=== PATIENT | male | born 1975 | race Caucasian/White ===

== ENCOUNTER 2017-09-20 23:04 | Inpatient (IN) ==
--- NOTE | 2017-09-20 23:20 | Emergency Department Note ---
Disposition Clinical Impression: Auditory hallucinations Disposition: Admitted As Inpatient Condition: Good Referrals: NONE,PCP [Primary Care Provider] - Forms: ED Satisfaction Letter Time of Disposition: 03:10 Psych HPI - General Chief Complaint: ED Psychiatric Symptoms Stated Complaint: SI Time Seen by Provider: 09/20/17 23:16 Source: patient Nursing Notes Reviewed: Yes Vital Signs Reviewed: Yes - History of Present Illness HPI Narrative: 42-year-old male with stated history of bipolar disease presents tonight with complaints of hallucinations, and decreased sleep 3 days. He describes auditory hallucinations as "moaning", visual hallucinations has people or "eyes " watching him and eye at night. He does not describe how long this has been going on but does mention he feels that this might be because he has not been taking his risperidone. He states this was changed from another medication and also mentions he was previously taking Paxil. He states that his brother recently told him he didn't need the medications. He sees Dr. Kayli Castillo, with whom he had seen 2 weeks ago, but missed the appointment today. He does not report any significant life stressors, injuries or recent illness. He does mention a history of heroin and alcohol abuse. He states he did have a beer earlier in the day, does report recent use of her water, Adderall which he buys on the street, and had used heroin 1-1/2 weeks ago. He mentions he has been admitted to [facility] in the past, and has had episodes of SI but denies any SI or HI tonight. - Related Data Home Medications Medication Instructions Recorded Confirmed Buprenorphine HCl/Naloxone HCl 1 film SL DAILY 11/04/15 11/04/15 [Suboxone 8 mg-2 mg Sl Film] Allergies Allergy/AdvReac Type Severity Reaction Status Date / Time No Known Allergies Allergy Verified 10/31/15 16:02 All systems ED: reviewed and negative except as stated. Review of Systems: As Per HPI Constitutional: Denies: fever Eyes: Denies: vision change ENT ED: Denies: throat pain Cardiovascular: Denies: chest pain Respiratory: Denies: dyspnea Gastrointestinal: Denies: abdominal pain, nausea, vomiting Genitourinary: Denies: dysuria Musculoskeletal: Reports: back pain. Denies: neck pain Integumentary: Denies: rash, lesions Neurological: Denies: headache Psychiatric: Reports: as per HPI Endocrine: Denies: fatigue Hematological/Lymphatic: Denies: easy bleeding Allergic/Immunologic: Denies: facial swelling Past Medical History - Past Medical History Medical history: Reports: other Surgical history: Reports: other Psychiatric history: Reports: bipolar - Social History Smoking Status: Current every day smoker Smokeless Tobacco Status: No Alcohol use: Reports: heavy Drug use: Reports: IV Drug Use, prescription drug abuse Physical Exam - General Limitations: no limitations General appearance: alert, in no apparent distress - Head Head exam: atraumatic, normocephalic - Eye Eye exam: Present: EOMI. Absent: conjunctival injection - ENT ENT exam: normal exam, normal oropharynx, mucous membranes moist - Neck Neck exam: Present: normal inspection, full ROM. Absent: meningismus, lymphadenopathy - Chest Chest inspection: Present: normal inspection, symmetric chest wall rise - Respiratory Respiratory exam: Present: normal lung sounds bilaterally. Absent: respiratory distress - Cardiovascular Cardiovascular exam: Present: regular rate, normal rhythm - Abdominal Exam Abdominal exam: Present: soft, Non-Tender - Extremities Exam Extremities exam: Present: normal inspection, full ROM, normal capillary refill - Back Exam Back exam: Present: normal inspection, full ROM. Absent: tenderness, CVA tenderness (R), CVA tenderness (L) - Neurological Exam Neurological exam: Present: alert - Psychiatric Psychiatric exam: Present: normal mood, manic - Skin Skin exam: Present: warm, dry, intact, normal color. Absent: rash, cyanosis, diaphoresis Course Course Narrative: 42-year-old male smoker with known history of bipolar disease presents with complaint of decreased sleep, and auditory or visual hallucinations. He reportedly is noncompliant with his risperidone. He also has reported history of IV drug use, and prescription medication abuse. He mentions other than risperidone he has not been prescribed any other medications. He mentions he had drank alcohol today, and recent use of Adderall marijuana and heroin. He mentions he has some low left lumbar pain that he relates to mowing grass, that he denies any other injuries, recent illness. On examination, patient is alert, talkative, does appear that he may be manic. He is clinically sober. He does describe auditory or visual hallucinations. Does report a prior history of suicidal ideation. He does describe being noncompliant with his medications and drug use, denies any life stressors. He mentions his girlfriend "arrhythmia" dropped him off and appears to be supportive. He reports that he sees Dr. Kayli Castillo, but missed the appointment earlier today. I will attempt to medically clear him for behavioral health evaluation, and if so, I we will order a behavioral health consult 1 day. Workup initiated. - Reevaluation(s) Reevaluation #1: Patient's blood alchol level 110. I anticipate 90 minutes until medical clearence. Time: 23:51 Vital Signs Temperature 97.5 F L 09/20/17 23:09 Pulse Rate 92 09/20/17 23:09 Respiratory Rate 20 09/20/17 23:09 Blood Pressure 133/79 09/20/17 23:09 O2 Sat by Pulse Oximetry 96 09/20/17 23:09 Temperature 97.5 F L 09/20/17 23:09 Pulse Rate 92 09/20/17 23:09 Respiratory Rate 20 09/20/17 23:09 Blood Pressure 133/79 09/20/17 23:09 O2 Sat by Pulse Oximetry 96 09/20/17 23:09 Oxygen Delivery Oxygen Delivery Room Air Psych - MDM Narrative Medical decision making narrative: Patient was medically cleared, evaluated by [facility] staff. I discussed patient with one a staff nurse Mirna Vidal RN, who had evaluated patient discussed with on-call psychiatrist Dr. Bland who advised for inpatient admission for medical management and stabilization. Patient was excluded. Patient was discussed with Dr. Constantino who agreed to see patient. Laboratory Tests 09/20/17 09/20/17 09/20/17 23:11 23:11 23:21 WBC 8.1 RBC 4.89 Hgb 15.6 Hct 44.1 MCV 90.2 MCH 31.9 MCHC 35.4 RDW 13.6 Plt Count 303 MPV 9.0 L Immature Gran % 0.2 Seg Neutrophils % 60.0 Lymphocytes % 30.2 Monocytes % 7.1 Eosinophils % 2.0 Basophils % 0.5 Neutrophils # 4.9 Lymphocytes # 2.5 Monocytes # 0.6 Eosinophils # 0.2 Basophils # 0.0 Sodium 137 Potassium 3.3 L Chloride 105 Carbon Dioxide 22 L BUN 8 Creatinine 0.85 Est GFR ( Amer) > 60 Est GFR (Non-Af Amer) > 60 BUN/Creatinine Ratio 9 Glucose 124 H Calculated Osmolality 284 Calcium 9.6 Urine Color Yellow Urine Clarity Clear Urine pH 5.5 Ur Specific [place] 1.014 Urine Protein Negative Urine Glucose (UA) Normal Urine Ketones Negative Urine Blood Negative Urine Nitrite Negative Urine Bilirubin Negative Urine Urobilinogen Normal Ur Leukocyte Esterase Negative Salicylates < 2.5 L Urine Opiates Screen Acetaminophen < 10 L Ur Barbiturates Screen Ur Phencyclidine Scrn Ur Amphetamines Screen U Benzodiazepines Scrn Urine Cocaine Screen U Marijuana (THC) Screen Ur Drug Screen Interp Ethyl Alcohol 110 H 09/20/17 09/21/17 23:21 00:39 WBC RBC Hgb Hct MCV MCH MCHC RDW Plt Count MPV Immature Gran % Seg Neutrophils % Lymphocytes % Monocytes % Eosinophils % Basophils % Neutrophils # Lymphocytes # Monocytes # Eosinophils # Basophils # Sodium Potassium Chloride Carbon Dioxide BUN Creatinine Est GFR ( Amer) Est GFR (Non-Af Amer) BUN/Creatinine Ratio Glucose Calculated Osmolality Calcium Urine Color Urine Clarity Urine pH Ur Specific [place] Urine Protein Urine Glucose (UA) Urine Ketones Urine Blood Urine Nitrite Urine Bilirubin Urine Urobilinogen Ur Leukocyte Esterase Salicylates Urine Opiates Screen Negative Acetaminophen Ur Barbiturates Screen Negative Ur Phencyclidine Scrn Negative Ur Amphetamines Screen Positive H U Benzodiazepines Scrn Negative Urine Cocaine Screen Negative U Marijuana (THC) Screen Negative Ur Drug Screen Interp See Below Ethyl Alcohol 70 H - Lab Data Result diagrams: 09/20/17 23:11 09/20/17 23:11 Lab Results 09/20/17 09/20/17 09/20/17 Range/Units 23:11 23:11 23:21 WBC 8.1 (4.3-11.1) K/mcL RBC 4.89 (4.19-5.50) M/mcL Hgb 15.6 (12.9-16.9) g/dL Hct 44.1 (37.5-50.1) % MCV 90.2 (83.0-100.0) fL MCH 31.9 (28.0-33.3) pg MCHC 35.4 (31.6-35.5) g/dL RDW 13.6 (11.5-14.5) % Plt Count 303 (140-400) K/mcL MPV 9.0 L (9.4-12.4) fL Immature Gran % 0.2 (0-4) % Seg Neutrophils % 60.0 % Lymphocytes % 30.2 % Monocytes % 7.1 % Eosinophils % 2.0 % Basophils % 0.5 % Neutrophils # 4.9 (1.6-8.9) K/mcL Lymphocytes # 2.5 (0.6-4.6) K/mcL Monocytes # 0.6 (0.0-1.3) K/mcL Eosinophils # 0.2 (0.0-0.6) K/mcL Basophils # 0.0 (0.0-0.2) K/mcL Sodium 137 (136-145) mEq/L Potassium 3.3 L (3.5-5.1) mEq/L Chloride 105 (98-107) mEq/L Carbon Dioxide 22 L (23-29) mEq/L BUN 8 (6-20) mg/dL Creatinine 0.85 (0.70-1.30) mg/dL Est GFR ( Amer) > 60 (> 60) Est GFR (Non-Af Amer) > 60 (> 60) BUN/Creatinine Ratio 9 (6-26) Glucose 124 H (70-105) mg/dL Calculated Osmolality 284 (280-300) Calcium 9.6 (8.6-10.3) mg/dL Urine Color Yellow (Yellow) Urine Clarity Clear (Clear) Urine pH 5.5 (5.0-8.0) pH Units Ur Specific [place] 1.014 (1.010-1.025) Urine Protein Negative (Neg-Trace) mg/dL Urine Glucose (UA) Normal (Normal) mg/dL Urine Ketones Negative (Negative) mg/dL Urine Blood Negative (Negative) Urine Nitrite Negative (Negative) Urine Bilirubin Negative (Negative) Urine Urobilinogen Normal (Normal) mg/dL Ur Leukocyte Esterase Negative (Negative) Salicylates < 2.5 L (15.0-30.0) mg/dL Urine Opiates Screen (Khvvwf=411) ng/mL Acetaminophen < 10 L (10-20) mcg/mL Ur Barbiturates Screen (Quyaui=168) ng/mL Ur Phencyclidine Scrn (Cutoff=25) ng/mL Ur Amphetamines Screen (Jmuuwa=1272) ng/mL U Benzodiazepines Scrn (Jegvjs=726) ng/mL Urine Cocaine Screen (Cutoff= 300) ng/mL U Marijuana (THC) Screen (Cutoff = 50) ng/mL Ur Drug Screen Interp Ethyl Alcohol 110 H (Less than 10) mg/dL 09/20/17 09/21/17 Range/Units 23:21 00:39 WBC (4.3-11.1) K/mcL RBC (4.19-5.50) M/mcL Hgb (12.9-16.9) g/dL Hct (37.5-50.1) % MCV (83.0-100.0) fL MCH (28.0-33.3) pg MCHC (31.6-35.5) g/dL RDW (11.5-14.5) % Plt Count (140-400) K/mcL MPV (9.4-12.4) fL Immature Gran % (0-4) % Seg Neutrophils % % Lymphocytes % % Monocytes % % Eosinophils % % Basophils % % Neutrophils # (1.6-8.9) K/mcL Lymphocytes # (0.6-4.6) K/mcL Monocytes # (0.0-1.3) K/mcL Eosinophils # (0.0-0.6) K/mcL Basophils # (0.0-0.2) K/mcL Sodium (136-145) mEq/L Potassium (3.5-5.1) mEq/L Chloride (98-107) mEq/L Carbon Dioxide (23-29) mEq/L BUN (6-20) mg/dL Creatinine (0.70-1.30) mg/dL Est GFR ( Amer) (> 60) Est GFR (Non-Af Amer) (> 60) BUN/Creatinine Ratio (6-26) Glucose (70-105) mg/dL Calculated Osmolality (280-300) Calcium (8.6-10.3) mg/dL Urine Color (Yellow) Urine Clarity (Clear) Urine pH (5.0-8.0) pH Units Ur Specific [place] (1.010-1.025) Urine Protein (Neg-Trace) mg/dL Urine Glucose (UA) (Normal) mg/dL Urine Ketones (Negative) mg/dL Urine Blood (Negative) Urine Nitrite (Negative) Urine Bilirubin (Negative) Urine Urobilinogen (Normal) mg/dL Ur Leukocyte Esterase (Negative) Salicylates (15.0-30.0) mg/dL Urine Opiates Screen Negative (Kleevp=367) ng/mL Acetaminophen (10-20) mcg/mL Ur Barbiturates Screen Negative (Nherpm=023) ng/mL Ur Phencyclidine Scrn Negative (Cutoff=25) ng/mL Ur Amphetamines Screen Positive H (Cctfhy=3541) ng/mL U Benzodiazepines Scrn Negative (Udtcwl=634) ng/mL Urine Cocaine Screen Negative (Cutoff= 300) ng/mL U Marijuana (THC) Screen Negative (Cutoff = 50) ng/mL Ur Drug Screen Interp See Below Ethyl Alcohol 70 H (Less than 10) mg/dL Psychiatric Medical Clearance - Medical Clearance Checklist Does the patient have a NEW psychiatric condition?: Yes Any abnormalities indicating possible medical illness?: No Any history of medical issues?: Yes (substance abuse) Medical History: No Social History Section defined Any abnormal vital signs prior to transfer?: No Current Vitals: Last Vital Signs Temp 97.5 F L 09/20/17 23:09 Pulse 92 09/20/17 23:09 Resp 20 09/20/17 23:09 BP 133/79 09/20/17 23:09 Pulse Ox 96 09/20/17 23:09 Is the patient intoxicated or cognitively impaired?: No Psychiatric Lab Panel: Drug Levels and Toxicity 09/20/17 09/20/17 09/21/17 23:11 23:21 00:39 Urine Opiates Screen Negative Acetaminophen < 10 L Ur Barbiturates Screen Negative Ur Phencyclidine Scrn Negative Ur Amphetamines Screen Positive H U Benzodiazepines Scrn Negative Urine Cocaine Screen Negative U Marijuana (THC) Screen Negative Ethyl Alcohol 110 H 70 H Any abnormalities on the physical exam?: No Any abnormal labs?: No Abnormal Labs: Abnormal lab results MPV 9.0 fL (9.4-12.4) L 09/20/17 23:11 Potassium 3.3 mEq/L (3.5-5.1) L 09/20/17 23:11 Carbon Dioxide 22 mEq/L (23-29) L 09/20/17 23:11 Glucose 124 mg/dL (70-105) H 09/20/17 23:11 Salicylates < 2.5 mg/dL (15.0-30.0) L 09/20/17 23:11 Acetaminophen < 10 mcg/mL (10-20) L 09/20/17 23:11 Ur Amphetamines Screen Positive ng/mL (Nhxjvz=3303) H 09/20/17 23:21 Ethyl Alcohol 70 mg/dL (Less than 10) H 09/21/17 00:39 Does the patient require durable medical equiptment?: No Is the patient ambulatory?: Yes Is the patient a fall risk?: No Has the patient been medically cleared?: Yes Statement of Medical Clearance: I have evaluated the patient, reviewed diagnostic information, and certify that the patient's medical condition is sufficiently stable that transfer to the psychiatric unit does not pose a significant risk of deterioration.
[2017-09-20 23:25] LABS: Basophils % 0.5 %; Eosinophils # 0.2 K/mcL (0.0-0.6); Hematocrit 44.1 % (37.5-50.1); Hemoglobin 15.6 g/dL (12.9-16.9); Immature Granulocytes % 0.2 % (0-4); Lymphocytes # 2.5 K/mcL (0.6-4.6); Lymphocytes % 30.2 %; Mean Corpuscular HGB Conc 35.4 g/dL (31.6-35.5); Mean Corpuscular Hemoglobin 31.9 pg (28.0-33.3); Mean Corpuscular Volume 90.2 fL (83.0-100.0); Monocytes # 0.6 K/mcL (0.0-1.3); Monocytes % 7.1 %; Neutrophils # 4.9 K/mcL (1.6-8.9); Platelet Count 303 K/mcL (140-400); Red Blood Count 4.89 M/mcL (4.19-5.50); Red Cell Distribution Width 13.6 % (11.5-14.5)
[2017-09-20 23:32] LABS: Bilirubin,Urine Negative (Negative); Blood,Urine Negative (Negative); Clarity,Urine Clear (Clear); Color,Urine Yellow (Yellow); Glucose,Urine (UA) Normal (Normal); Ketones,Urine Negative (Negative); Leukocyte Esterase,Urine Negative (Negative); Nitrite,Urine Negative (Negative); PH,Urine 5.5 pH Units (5.0-8.0); Protein,Urine Negative (Neg-Trace); Specific Gravity,Urine 1.014 (1.010-1.025); Urobilinogen,Urine Normal (Normal)
[2017-09-20 23:44] LABS: Acetaminophen < 10 mcg/mL (10-20); BUN/Creatinine Ratio 9 (6-26); Blood Urea Nitrogen 8 mg/dL (6-20); Calcium 9.6 mg/dL (8.6-10.3); Carbon Dioxide 22 mEq/L (23-29); Chloride 105 mEq/L (98-107); Ethanol 110 mg/dL (Less than 10); Glucose 124 mg/dL (70-105); Osmolality,Calculated 284 (280-300); Potassium 3.3 mEq/L (3.5-5.1); Salicylate < 2.5 mg/dL (15.0-30.0); Sodium 137 mEq/L (136-145); eGFR For Non-African Americans > 60 (> 60)
[2017-09-20 23:57] LABS: Amphetamine Screen,Urine Positive ng/mL (Cutoff=1000); Barbiturate Screen,Urine Negative ng/mL (Cutoff=200); Benzodiazepines Screen,Urine Negative ng/mL (Cutoff=200); Cannabinoid Screen,Urine Negative ng/mL (Cutoff = 50); Cocaine Screen,Urine Negative ng/mL (Cutoff= 300); Opiate Screen,Urine Negative ng/mL (Cutoff=300); Phencyclidine Screen,Urine Negative ng/mL (Cutoff=25)
--- NOTE | 2017-09-21 03:01 | Emergency Department Note ---
Disposition Clinical Impression: Auditory hallucinations Disposition: Admitted As Inpatient Condition: Good General Adult HPI - General Chief complaint: ED Psychiatric Symptoms Stated complaint: SI Time Seen by Provider: 09/20/17 23:16 Source: patient Limitations: no limitations Nursing Notes Reviewed: Yes Vital Signs Reviewed: Yes - History of Present Illness Pain Scale: 0 - Related Data Home Medications Medication Instructions Recorded Confirmed Buprenorphine HCl/Naloxone HCl 1 film SL DAILY 11/04/15 11/04/15 [Suboxone 8 mg-2 mg Sl Film] Allergies Allergy/AdvReac Type Severity Reaction Status Date / Time No Known Allergies Allergy Verified 10/31/15 16:02 Constitutional: Denies: fever Eyes: Denies: vision change ENT ED: Denies: throat pain Cardiovascular: Denies: chest pain Respiratory: Denies: dyspnea Gastrointestinal: Denies: abdominal pain, nausea, vomiting Genitourinary: Denies: dysuria Musculoskeletal: Reports: back pain. Denies: neck pain Integumentary: Denies: rash, lesions Neurological: Denies: headache Psychiatric: Reports: as per HPI Endocrine: Denies: fatigue Hematological/Lymphatic: Denies: easy bleeding Allergic/Immunologic: Denies: facial swelling Past Medical History - Past Medical History Medical history: Reports: other Surgical history: Reports: other Psychiatric history: Reports: bipolar - Social History Smoking Status: Current every day smoker Smokeless Tobacco Status: No Alcohol use: Reports: heavy Drug use: Reports: IV Drug Use, prescription drug abuse Physical Exam - General Limitations: no limitations General appearance: alert, in no apparent distress Course Vital Signs Temperature 97.5 F L 09/20/17 23:09 Pulse Rate 92 09/20/17 23:09 Respiratory Rate 20 09/20/17 23:09 Blood Pressure 133/79 09/20/17 23:09 O2 Sat by Pulse Oximetry 96 09/20/17 23:09 Temperature 97.5 F L 09/20/17 23:09 Pulse Rate 92 09/20/17 23:09 Respiratory Rate 20 09/20/17 23:09 Blood Pressure 133/79 09/20/17 23:09 O2 Sat by Pulse Oximetry 96 09/20/17 23:09 Oxygen Delivery Oxygen Delivery Room Air Medical Decision Making - Lab Data Lab results reviewed: Yes I reviewed the patient's lab results. Result diagrams: 09/20/17 23:11 09/20/17 23:11 Lab Results 09/20/17 09/20/17 09/20/17 Range/Units 23:11 23:11 23:21 WBC 8.1 (4.3-11.1) K/mcL RBC 4.89 (4.19-5.50) M/mcL Hgb 15.6 (12.9-16.9) g/dL Hct 44.1 (37.5-50.1) % MCV 90.2 (83.0-100.0) fL MCH 31.9 (28.0-33.3) pg MCHC 35.4 (31.6-35.5) g/dL RDW 13.6 (11.5-14.5) % Plt Count 303 (140-400) K/mcL MPV 9.0 L (9.4-12.4) fL Immature Gran % 0.2 (0-4) % Seg Neutrophils % 60.0 % Lymphocytes % 30.2 % Monocytes % 7.1 % Eosinophils % 2.0 % Basophils % 0.5 % Neutrophils # 4.9 (1.6-8.9) K/mcL Lymphocytes # 2.5 (0.6-4.6) K/mcL Monocytes # 0.6 (0.0-1.3) K/mcL Eosinophils # 0.2 (0.0-0.6) K/mcL Basophils # 0.0 (0.0-0.2) K/mcL Sodium 137 (136-145) mEq/L Potassium 3.3 L (3.5-5.1) mEq/L Chloride 105 (98-107) mEq/L Carbon Dioxide 22 L (23-29) mEq/L BUN 8 (6-20) mg/dL Creatinine 0.85 (0.70-1.30) mg/dL Est GFR ( Amer) > 60 (> 60) Est GFR (Non-Af Amer) > 60 (> 60) BUN/Creatinine Ratio 9 (6-26) Glucose 124 H (70-105) mg/dL Calculated Osmolality 284 (280-300) Calcium 9.6 (8.6-10.3) mg/dL Urine Color Yellow (Yellow) Urine Clarity Clear (Clear) Urine pH 5.5 (5.0-8.0) pH Units Ur Specific [place] 1.014 (1.010-1.025) Urine Protein Negative (Neg-Trace) mg/dL Urine Glucose (UA) Normal (Normal) mg/dL Urine Ketones Negative (Negative) mg/dL Urine Blood Negative (Negative) Urine Nitrite Negative (Negative) Urine Bilirubin Negative (Negative) Urine Urobilinogen Normal (Normal) mg/dL Ur Leukocyte Esterase Negative (Negative) Salicylates < 2.5 L (15.0-30.0) mg/dL Urine Opiates Screen (Xpwyym=227) ng/mL Acetaminophen < 10 L (10-20) mcg/mL Ur Barbiturates Screen (Vraoev=123) ng/mL Ur Phencyclidine Scrn (Cutoff=25) ng/mL Ur Amphetamines Screen (Imgpsr=1153) ng/mL U Benzodiazepines Scrn (Zykerf=222) ng/mL Urine Cocaine Screen (Cutoff= 300) ng/mL U Marijuana (THC) Screen (Cutoff = 50) ng/mL Ur Drug Screen Interp Ethyl Alcohol 110 H (Less than 10) mg/dL 09/20/17 09/21/17 Range/Units 23:21 00:39 WBC (4.3-11.1) K/mcL RBC (4.19-5.50) M/mcL Hgb (12.9-16.9) g/dL Hct (37.5-50.1) % MCV (83.0-100.0) fL MCH (28.0-33.3) pg MCHC (31.6-35.5) g/dL RDW (11.5-14.5) % Plt Count (140-400) K/mcL MPV (9.4-12.4) fL Immature Gran % (0-4) % Seg Neutrophils % % Lymphocytes % % Monocytes % % Eosinophils % % Basophils % % Neutrophils # (1.6-8.9) K/mcL Lymphocytes # (0.6-4.6) K/mcL Monocytes # (0.0-1.3) K/mcL Eosinophils # (0.0-0.6) K/mcL Basophils # (0.0-0.2) K/mcL Sodium (136-145) mEq/L Potassium (3.5-5.1) mEq/L Chloride (98-107) mEq/L Carbon Dioxide (23-29) mEq/L BUN (6-20) mg/dL Creatinine (0.70-1.30) mg/dL Est GFR ( Amer) (> 60) Est GFR (Non-Af Amer) (> 60) BUN/Creatinine Ratio (6-26) Glucose (70-105) mg/dL Calculated Osmolality (280-300) Calcium (8.6-10.3) mg/dL Urine Color (Yellow) Urine Clarity (Clear) Urine pH (5.0-8.0) pH Units Ur Specific [place] (1.010-1.025) Urine Protein (Neg-Trace) mg/dL Urine Glucose (UA) (Normal) mg/dL Urine Ketones (Negative) mg/dL Urine Blood (Negative) Urine Nitrite (Negative) Urine Bilirubin (Negative) Urine Urobilinogen (Normal) mg/dL Ur Leukocyte Esterase (Negative) Salicylates (15.0-30.0) mg/dL Urine Opiates Screen Negative (Emckwh=000) ng/mL Acetaminophen (10-20) mcg/mL Ur Barbiturates Screen Negative (Bqmuyx=653) ng/mL Ur Phencyclidine Scrn Negative (Cutoff=25) ng/mL Ur Amphetamines Screen Positive H (Iihmqu=3086) ng/mL U Benzodiazepines Scrn Negative (Rsrpvj=470) ng/mL Urine Cocaine Screen Negative (Cutoff= 300) ng/mL U Marijuana (THC) Screen Negative (Cutoff = 50) ng/mL Ur Drug Screen Interp See Below Ethyl Alcohol 70 H (Less than 10) mg/dL Attestation Statement - Attestation Attestation: I, Dandre Constantino MD, personally evaluated this patient and discussed their management with the midlevel provicer, PAC/[employer] CONS[employer]ANT. I reviewed the midlevel provider 's note and agree with the documented findings, medical decision making, and plan of care. 42-year-old male presents to the emergency department with a complaint of auditory hallucinations and suicidal ideation. He denies any suicide attempt. He does have a prior history of suicidal ideation and depression and is on medications but states it does not seem to be helping. On examination patient is a well-developed well-nourished well-appearing male in no acute distress. He is alert and oriented 3. There is no cyanosis or diaphoresis. Breath sounds are clear and equal bilaterally. Heart regular rate and rhythm. Abdomen soft and nontender with normal bowel sounds. No gross focal neurological deficits. Labs reviewed. Patient medically cleared for psychiatric evaluation. [address] psychiatry department was consulted and evaluated the patient in the emergency department and patient is being admitted to the [address] psychiatric unit.
[2017-09-21] MEDS ORDERED: hydrOXYzine pamoate 25 MG CAPSULE PO PRN (04:10)
[2017-09-21] MEDS ORDERED: Ibuprofen 400 MG TABLET PO PRN (04:10)
[2017-09-21] MEDS ORDERED: Haloperidol Lactate 5 MG/ML VIAL IM PRN (04:10)
[2017-09-21] MEDS ORDERED: *HR* LORazepam 1 MG TABLET PO PRN (04:10)
[2017-09-21] MEDS ORDERED: traZODone 50 MG TABLET PO PRN (04:10)
[2017-09-21] MEDS ORDERED: Mag Hydrox/Al Hydrox/Simeth 30 ML UDC PO PRN (04:10)
[2017-09-21] MEDS ORDERED: *HR* LORazepam 2 MG/ML VIAL IM PRN (04:10)
[2017-09-21] MEDS ORDERED: MOM Conc 10 ML UD.LIQ PO PRN (04:10)
[2017-09-21] MEDS: risperiDONE 1 MG TABLET PO SCH ×2 (09:43→21:22)
[2017-09-21] MEDS: Nicotine 21 MG PATCH.TD24 TD SCH (09:44)
--- NOTE | 2017-09-21 12:56 | Psychiatry History & Physical ---
Date of Encounter: 09/21/17 Time of Encounter: 12:49 History of Present Illness Patient Stated Chief Complaint: psychosis Medicare Admission Attestation: For traditional Medicare patients the provided hospital inpatient services are reasonable and necessary and in the case of services not specified as inpatient -only under 42 CFR 419.22 (n), that they are appropriately provided as inpatient services in accordance 42 CFR 412.3. For Critical [facility] Hospital the patient may reasonably be expected to be discharged or transferred to a hospital within 96 hours after admission to the Critical Access Hospital. Admitted From: Home Plans for Post Hospital Care: Home History of Present Illness: Mr. Gonzalez is a 42 year old male who was admitted secondary to /. Records also indicate he was positive for SI at the time of presentation but client is denying this now. Does not appear psychotic. Client endorses hearing moaning in his attic which is why he became concerned. Girlfriend wanted him to get checked out. Client reports he is abusing multiple drugs including stimulants like cocaine, methamphetamines and Adderall. Suspect presentation is all substance induced. Client reports his mood is good today. Denies SI/HI. Already talking about leaving the hospital. Historical diagnosis of Bipolar Disorder but AOD use is so prevalent would not presume this diagnosis is accurate. Currently prescribed Risperdal by physician in the community. Client likes this medication but stopped taking it out of fear it was causing hallucinations. Discussed with client that Risperdal treats hallucinations and that his recreational use is more than likely the culprit. Will restart Risperdal. If continues to look this good tomorrow will discharge as client is not motivated to treat AOD issues and he appears otherwise stable. Past Med Surg Social Fam HX - Past Medical History Medical history: other - Past Psychiatric History Psychiatric history: Reports: bipolar Family psychiatric history: Unknown Family History of Suicide: Unknown - Past Surgical History Surgical History: other - Social History Smoking Status: Current every day smoker Smokeless Tobacco Status: No Alcohol use: heavy Drug use: IV Drug Use, prescription drug abuse Medications & Allergies Venlafaxine HCl 50 mg PO DAILY 09/21/17 [History] risperiDONE [Risperidone] 0.5 mg PO BID 09/21/17 [History] 3 Allergy/AdvReac Type Severity Reaction Status Date / Time No Known Allergies Allergy Verified 10/31/15 16:02 Review of Systems Constitutional: Denies: fever, chills, weakness, weight change Eyes: Denies: eye pain, vision change Ears, Nose, Throat: Denies: ear pain, throat pain, dental pain, hearing loss, congestion Cardiovascular: Denies: chest pain, palpitations, dyspnea on exertion Respiratory: Denies: cough, dyspnea, wheezes Gastrointestinal: Denies: abdominal pain, nausea, vomiting, diarrhea, constipation Genitourinary male: Denies: urgency, dysuria, frequency, genital lesions Musculoskeletal: Denies: joint swelling, joint pain Integumentary: Denies: rash, lesions, pruritus Neurological: Denies: headache, weakness, numbness, memory loss Endocrine: Denies: fatigue, heat or cold intolerance Hematologic/Lymphatic: Denies: easy bruising, lymphadenopathy Allergic/Immunologic: Denies: urticaria, itchy eyes Exam - HEENT Head exam IM: Present: atraumatic Eye exam IM: Present: EOMI ENT exam IM: Present: normal exam - Neurological Neurological exam: Present: CN II-XII intact - Respiratory Respiratory exam IM: Present: CTAB - GI/Abdominal GI/Abdominal exam IM: Present: normal bowel sounds, soft. Absent: tenderness - Extremities Extremities exam IM: Present: full ROM - Skin Skin exam IM: Present: dry, warm - Constitutional Vitals: Temp Pulse Resp BP Pulse Ox 97.3 F L 73 16 111/82 96 09/21/17 09:00 09/21/17 09:00 09/21/17 09:00 09/21/17 09:00 09/20/17 23:09 General appearance: age & developmentally appropriate, well-groomed, well- nourished - Musculoskeletal Gait: normal Station: relaxed Strength & Tone: normal for patient - Psychiatric Patient Orientation: Yes Person, Yes Time, Yes Place Level of alertness: Alert Behavior: calm, cooperative Psychomotor activity: Normal Eye Contact: Maintains Eye Contact Mood Description: Euthymic/stable Affect description: congruent with mood, full range Speech Volume: Normal Speech pattern: normal rate, normal rhythm, normal tone, fluent, spontaneous Language & Vocabulary: consistent with education Thought Process: Linear, Goal Oriented Thought Content: No Suicidal ideation, No Homicidal ideation, No Overt delusions Perceptual Disturbances: Yes Auditory hallucinations, Yes Visual hallucinations Attention Span Ability: Capable of Focused Attention Memory Description: Grossly Intact Patient Reliability: Questionable Historian Fund of knowledge: Yes abstraction ability, Yes average, Yes aware of current events Intelligence Estimate: Average Judgment: Limited Insight: Minimal Results - Labs Labs: Laboratory Last Values WBC 8.1 K/mcL (4.3-11.1) 09/20/17 23:11 RBC 4.89 M/mcL (4.19-5.50) 09/20/17 23:11 Hgb 15.6 g/dL (12.9-16.9) 09/20/17 23:11 Hct 44.1 % (37.5-50.1) 09/20/17 23:11 MCV 90.2 fL (83.0-100.0) 09/20/17 23:11 MCH 31.9 pg (28.0-33.3) 09/20/17 23:11 MCHC 35.4 g/dL (31.6-35.5) 09/20/17 23:11 RDW 13.6 % (11.5-14.5) 09/20/17 23:11 Plt Count 303 K/mcL (140-400) 09/20/17 23:11 MPV 9.0 fL (9.4-12.4) L 09/20/17 23:11 Immature Gran % 0.2 % (0-4) 09/20/17 23:11 Seg Neutrophils % 60.0 % 09/20/17 23:11 Lymphocytes % 30.2 % 09/20/17 23:11 Monocytes % 7.1 % 09/20/17 23:11 Eosinophils % 2.0 % 09/20/17 23:11 Basophils % 0.5 % 09/20/17 23:11 Neutrophils # 4.9 K/mcL (1.6-8.9) 09/20/17 23:11 Lymphocytes # 2.5 K/mcL (0.6-4.6) 09/20/17 23:11 Monocytes # 0.6 K/mcL (0.0-1.3) 09/20/17 23:11 Eosinophils # 0.2 K/mcL (0.0-0.6) 09/20/17 23:11 Basophils # 0.0 K/mcL (0.0-0.2) 09/20/17 23:11 Sodium 137 mEq/L (136-145) 09/20/17 23:11 Potassium 3.3 mEq/L (3.5-5.1) L 09/20/17 23:11 Chloride 105 mEq/L (98-107) 09/20/17 23:11 Carbon Dioxide 22 mEq/L (23-29) L 09/20/17 23:11 BUN 8 mg/dL (6-20) 09/20/17 23:11 Creatinine 0.85 mg/dL (0.70-1.30) 09/20/17 23:11 Est GFR ( Amer) > 60 (> 60) 09/20/17 23:11 Est GFR (Non-Af Amer) > 60 (> 60) 09/20/17 23:11 BUN/Creatinine Ratio 9 (6-26) 09/20/17 23:11 Glucose 124 mg/dL (70-105) H 09/20/17 23:11 Calculated Osmolality 284 (280-300) 09/20/17 23:11 Calcium 9.6 mg/dL (8.6-10.3) 09/20/17 23:11 Urine Color Yellow (Yellow) 09/20/17 23:21 Urine Clarity Clear (Clear) 09/20/17 23:21 Urine pH 5.5 pH Units (5.0-8.0) 09/20/17 23:21 Ur Specific [place] 1.014 (1.010-1.025) 09/20/17 23:21 Urine Protein Negative mg/dL (Neg-Trace) 09/20/17 23:21 Urine Glucose (UA) Normal mg/dL (Normal) 09/20/17 23:21 Urine Ketones Negative mg/dL (Negative) 09/20/17 23:21 Urine Blood Negative (Negative) 09/20/17 23:21 Urine Nitrite Negative (Negative) 09/20/17 23:21 Urine Bilirubin Negative (Negative) 09/20/17 23:21 Urine Urobilinogen Normal mg/dL (Normal) 09/20/17 23:21 Ur Leukocyte Esterase Negative (Negative) 09/20/17 23:21 Salicylates < 2.5 mg/dL (15.0-30.0) L 09/20/17 23:11 Urine Opiates Screen Negative ng/mL (Oxcscz=457) 09/20/17 23:21 Acetaminophen < 10 mcg/mL (10-20) L 09/20/17 23:11 Ur Barbiturates Screen Negative ng/mL (Ozgugr=044) 09/20/17 23:21 Ur Phencyclidine Scrn Negative ng/mL (Cutoff=25) 09/20/17 23:21 Ur Amphetamines Screen Positive ng/mL (Jspgbm=5339) H 09/20/17 23:21 U Benzodiazepines Scrn Negative ng/mL (Pbsmox=813) 09/20/17 23:21 Urine Cocaine Screen Negative ng/mL (Cutoff= 300) 09/20/17 23:21 U Marijuana (THC) Screen Negative ng/mL (Cutoff = 50) 09/20/17 23:21 Ur Drug Screen Interp See Below 09/20/17 23:21 Ethyl Alcohol 70 mg/dL (Less than 10) H 09/21/17 00:39 Assessment and Plan (1) Substance-induced psychotic disorder Current visit: Yes Status: Acute Plan: Admit inpatient for safety and stabilization, Close observation, Suicide Precautions per unit protocol, Encourage participation in unit milieu, Group Therapy, Monitor sleep, Monitor appetite Risks, benefits, side effects, alternatives discussed w/pt: Yes Patient agreeable to treatment: Yes Plans for Post Hospital Care: Home Estimated Length of Stay (Days): 3
[2017-09-21] MEDS ORDERED: Melatonin 3 MG TABLET PO SCH (21:00)
[2017-09-22] MEDS: risperiDONE 1 MG TABLET PO SCH (08:45)
[2017-09-22] MEDS: Nicotine 21 MG PATCH.TD24 TD SCH (08:46)
[2017-09-22 10:22] VITALS: BP 113/77
--- NOTE | 2017-09-22 10:46 | Discharge Summary ---
Date of Encounter: 09/22/17 Time of Encounter: 10:44 Diagnosis - Discharge Diagnosis (1) Substance-induced psychotic disorder Status: Acute Medications - Discharge Medications Prescriptions: Melatonin 3 mg PO HS #14 tablet risperiDONE [RisperDAL] 1 mg PO BID #28 tablet Venlafaxine HCl 50 mg PO DAILY 09/21/17 [History] Melatonin 3 mg PO HS #14 tablet 09/22/17 [Rx] risperiDONE [RisperDAL] 1 mg PO BID #28 tablet 09/22/17 [Rx] 3 Allergy/AdvReac Type Severity Reaction Status Date / Time No Known Allergies Allergy Verified 10/31/15 16:02 Provider Date of admission: 09/21/17 03:10 Primary care physician: PCP NONE Discharging clinician: Gaviota Belcher Psychiat[facility] Exam - Constitutional Vitals: Temp Pulse Resp BP Pulse Ox 97.9 F 72 16 113/77 96 09/22/17 09:00 09/22/17 09:00 09/22/17 09:00 09/22/17 09:00 09/20/17 23:09 General appearance: age & developmentally appropriate, well-groomed, well- nourished - Musculoskeletal Gait: normal Station: relaxed Strength & Tone: normal for patient - Psychiatric Patient Orientation: Yes Person, Yes Time, Yes Place Level of alertness: Alert Behavior: calm, cooperative Psychomotor activity: Normal Eye Contact: Maintains Eye Contact Mood Description: Euthymic/stable Affect description: congruent with mood, full range Speech Volume: Normal Speech pattern: normal rate, normal rhythm, normal tone, fluent, spontaneous Language & Vocabulary: consistent with education Thought Process: Linear, Goal Oriented Thought Content: No Suicidal ideation, No Homicidal ideation, No Overt delusions Perceptual Disturbances: No Auditory hallucinations, No Visual hallucinations Attention Span Ability: Capable of Focused Attention Memory Description: Grossly Intact Patient Reliability: Reliable Historian Fund of knowledge: Yes abstraction ability, Yes aware of current events Intelligence Estimate: Average Judgment: Limited Insight: Partial Hospital Course Hospital course: Mr. Gonzalez is a 42 year old male who was admitted secondary to symptoms of psychosis. Paranoid and experiencing AH at home. Prescribed Risperdal as an outpatient but threw it away as he was afraid the medication was causing his symptoms. Discussed how his recreational drug use was the likely culprit and that Risperdal helps with symptoms of psychosis. Client agreeable to restarting it and had no issues in the hospital. Psychosis cleared. Denied SI/ HI. Cooperative on the unit. Interacted well with staff and peers. Mood good. Had visitors. Stable for discharge. - Time Spent with Patient Total time spent providing and/or coordinating discharge services: Assessment and Plan - Patient/Caregiver Discharge Instructions Activity: resume usual activities as tolerated Diet: regular diet - Follow up Plan Follow up with: NONE,PCP [Primary Care Provider] - Functional capacity at discharge: independent ambulation Overall status at discharge: Stable Disposition: Home, Self-Care Quality - Multiple Antipsychotics Patient discharged on 2 or more antipsychotic medications: No Procedures - Procedures Procedures: Medication Management, Crisis Stabilization, Supportive Therapy, Group Therapy
[2017-09-23] MEDS ORDERED: RisperiDONE MICROSPHERES 25 MG/2 ML SYRINGE IM ONE (15:00)
[2017-09-25] MEDS ORDERED: RisperiDONE MICROSPHERES 25 MG/2 ML SYRINGE IM ONE (15:00)
== END 2017-09-22 10:32 | disposition home or self-care (01) | DRG 776 ==
LOC: EMEROO 23:04 → 1ANU 09-21 03:10
PROVIDERS: ADMIT Psychiatry & Neurology Forensic Psychiatry; ATTEND Psychiatry & Neurology Forensic Psychiatry

== ENCOUNTER 2019-05-17 21:13 | Observation (INO) ==
[2019-05-17 21:47] LABS: Basophils % 0.4 %; Eosinophils # 0.1 K/mcL (0.0-0.6); Eosinophils % 2.5 %; Hemoglobin 13.3 g/dL (12.9-16.9); Immature Granulocytes % 0.4 % (0-4); Lymphocytes # 1.3 K/mcL (0.6-4.6); Lymphocytes % 26.9 %; Mean Corpuscular HGB Conc 32.4 g/dL (31.6-35.5); Mean Corpuscular Hemoglobin 30.1 pg (28.0-33.3); Mean Corpuscular Volume 92.8 fL (83.0-100.0); Mean Platelet Volume 8.9 fL (9.4-12.4); Monocytes # 0.4 K/mcL (0.0-1.3); Monocytes % 7.8 %; Neutrophils # 2.9 K/mcL (1.6-8.9); Platelet Count 238 K/mcL (140-400); Red Blood Count 4.42 M/mcL (4.19-5.50); Red Cell Distribution Width 13.3 % (11.5-14.5); White Blood Count 4.8 K/mcL (4.3-11.1)
[2019-05-17 21:48] LABS: Prothrombin Time 11.4 Seconds (9.4-12.1)
[2019-05-17 22:04] LABS: Alanine Aminotransferase 170 Units/L (7-52); Albumin/Globulin Ratio 1.4 (1.1-2.2); Alkaline Phosphatase 77 Units/L (34-104); Aspartate Amino Transferase 104 Units/L (13-39); BUN/Creatinine Ratio 11 (6-26); Bilirubin,Direct 0.2 mg/dL (0.0-0.2); Bilirubin,Indirect 0.4 mg/dL (0.0-1.0); Bilirubin,Total 0.6 mg/dL (0.3-1.0); Blood Urea Nitrogen 10 mg/dL (6-20); Calcium 8.7 mg/dL (8.6-10.3); Carbon Dioxide 23 mEq/L (23-29); Chloride 103 mEq/L (98-107); Ethanol 51 mg/dL (Less than 10); Globulin 2.8 g/dL (2.4-3.5); Glucose 106 mg/dL (70-105); Osmolality,Calculated 281 (280-300); Potassium 3.7 mEq/L (3.5-5.1); Sodium 136 mEq/L (136-145); Total Protein 6.8 g/dL (6.4-8.9); eGFR For African Americans > 60 (> 60); eGFR For Non-African Americans > 60 (> 60)
[2019-05-17 22:05] LABS: Troponin I < 0.03 ng/mL (< 0.04)
[2019-05-17] MEDS ORDERED: Tdap (Boostrix) Vaccine 0.5 ML SYRINGE IM ONE (23:03)
[2019-05-18] MEDS ORDERED: Naloxone 0.4 MG/ML INJ IVP PRN (00:20)
[2019-05-18] MEDS ORDERED: *HR* LORazepam 2 MG/ML VIAL IVP PRN (00:21)
[2019-05-18] MEDS ORDERED: *HR* Promethazine 25 MG/ML VIAL IVP PRN (00:21)
[2019-05-18 01:42] LABS: Basophils % 0.3 %; Eosinophils # 0.1 K/mcL (0.0-0.6); Eosinophils % 0.8 %; Hematocrit 41.3 % (37.5-50.1); Hemoglobin 13.6 g/dL (12.9-16.9); Immature Granulocytes % 0.3 % (0-4); Lymphocytes # 1.4 K/mcL (0.6-4.6); Lymphocytes % 22.5 %; Mean Corpuscular HGB Conc 32.9 g/dL (31.6-35.5); Mean Corpuscular Hemoglobin 30.4 pg (28.0-33.3); Mean Corpuscular Volume 92.4 fL (83.0-100.0); Monocytes # 0.5 K/mcL (0.0-1.3); Monocytes % 7.5 %; Neutrophils # 4.1 K/mcL (1.6-8.9); Platelet Count 235 K/mcL (140-400); Red Blood Count 4.47 M/mcL (4.19-5.50); Red Cell Distribution Width 13.5 % (11.5-14.5); Segmented Neutrophils % 68.6 %
[2019-05-18 02:11] LABS: BUN/Creatinine Ratio 12 (6-26); Blood Urea Nitrogen 10 mg/dL (6-20); Calcium 8.8 mg/dL (8.6-10.3); Carbon Dioxide 29 mEq/L (23-29); Chloride 102 mEq/L (98-107); Glucose 68 mg/dL (70-105); Osmolality,Calculated 279 (280-300); Potassium 4.2 mEq/L (3.5-5.1); Sodium 136 mEq/L (136-145); eGFR For African Americans > 60 (> 60); eGFR For Non-African Americans > 60 (> 60)
[2019-05-18 08:21] LABS: Bilirubin,Urine Negative (Negative); Blood,Urine Negative (Negative); Clarity,Urine Cloudy (Clear); Color,Urine Yellow (Yellow); Glucose,Urine (UA) Normal (Normal); Ketones,Urine Negative (Negative); Leukocyte Esterase,Urine Negative (Negative); Nitrite,Urine Negative (Negative); PH,Urine 6.5 pH Units (5.0-8.0); Protein,Urine Negative (Neg-Trace); Urobilinogen,Urine Normal (Normal)
[2019-05-18 08:23] LABS: Hyaline Casts,Urine None Seen per lpf (None-Few); RBC,Urine 0-3 per hpf (0-3); Squamous Epithelial Cell,Urine Moderate per lpf (None-Few)
[2019-05-18 08:45] LABS: Bacteria,Urine Moderate per hpf (None-Few)
[2019-05-18 08:47] LABS: Amphetamine Screen,Urine Positive ng/mL (Cutoff=1000); Barbiturate Screen,Urine Negative ng/mL (Cutoff=200); Benzodiazepines Screen,Urine Negative ng/mL (Cutoff=200); Cannabinoid Screen,Urine Positive ng/mL (Cutoff = 50); Cocaine Screen,Urine Negative ng/mL (Cutoff= 300); Opiate Screen,Urine Negative ng/mL (Cutoff=300); Phencyclidine Screen,Urine Negative ng/mL (Cutoff=25)
[2019-05-18] MEDS ORDERED: Folic Acid 1 MG TABLET PO SCH (09:00)
[2019-05-18] MEDS ORDERED: Vitamin B Complex/Vit C/Vit E 1 EACH TABLET PO SCH (09:00)
[2019-05-18] MEDS ORDERED: Thiamine (B-1) 100 MG TABLET PO SCH (09:00)
[2019-05-18 11:06] VITALS: BP 109/63
== END 2019-05-18 14:14 | disposition home or self-care (01) ==
LOC: 3BNU 21:13 → EMEROOARM 21:13 → SUATTDRO 05-18 00:29 → 3BNU 05-18 00:51
PROVIDERS: ADMIT Student in an Organized Health Care Education/Training Program; ATTEND Internal Medicine

== ENCOUNTER 2019-06-21 01:50 | Inpatient (IN) ==
[2019-06-21 02:28] LABS: Basophils % 0.4 %; Eosinophils # 0.1 K/mcL (0.0-0.6); Eosinophils % 1.6 %; Hematocrit 40.5 % (37.5-50.1); Hemoglobin 13.7 g/dL (12.9-16.9); Immature Granulocytes % 0.4 % (0-4); Lymphocytes # 1.8 K/mcL (0.6-4.6); Lymphocytes % 23.1 %; Mean Corpuscular HGB Conc 33.8 g/dL (31.6-35.5); Mean Corpuscular Hemoglobin 31.1 pg (28.0-33.3); Mean Corpuscular Volume 91.8 fL (83.0-100.0); Mean Platelet Volume 8.6 fL (9.4-12.4); Monocytes # 0.5 K/mcL (0.0-1.3); Monocytes % 6.7 %; Neutrophils # 5.2 K/mcL (1.6-8.9); Platelet Count 311 K/mcL (140-400); Red Blood Count 4.41 M/mcL (4.19-5.50); Red Cell Distribution Width 14.2 % (11.5-14.5); Segmented Neutrophils % 67.8 %; White Blood Count 7.6 K/mcL (4.3-11.1)
[2019-06-21 02:51] LABS: Acetaminophen < 10 mcg/mL (10-20); Alanine Aminotransferase 68 Units/L (7-52); Albumin 4.1 g/dL (3.5-5.7); Albumin/Globulin Ratio 1.4 (1.1-2.2); Alkaline Phosphatase 73 Units/L (34-104); Aspartate Amino Transferase 42 Units/L (13-39); BUN/Creatinine Ratio 17 (6-26); Bilirubin,Direct 0.1 mg/dL (0.0-0.2); Bilirubin,Indirect 0.3 mg/dL (0.0-1.0); Bilirubin,Total 0.4 mg/dL (0.3-1.0); Blood Urea Nitrogen 16 mg/dL (6-20); Calcium 8.6 mg/dL (8.6-10.3); Carbon Dioxide 29 mEq/L (23-29); Chloride 103 mEq/L (98-107); Ethanol 13 mg/dL (Less than 10); Globulin 2.9 g/dL (2.4-3.5); Glucose 103 mg/dL (70-105); Osmolality,Calculated 289 (280-300); Potassium 3.6 mEq/L (3.5-5.1); Salicylate < 2.5 mg/dL (15.0-30.0); Sodium 139 mEq/L (136-145); eGFR For African Americans > 60 (> 60); eGFR For Non-African Americans > 60 (> 60)
[2019-06-21 04:08] LABS: Amphetamine Screen,Urine Positive ng/mL (Cutoff=1000); Barbiturate Screen,Urine Negative ng/mL (Cutoff=200); Benzodiazepines Screen,Urine Negative ng/mL (Cutoff=200); Cannabinoid Screen,Urine Positive ng/mL (Cutoff = 50); Cocaine Screen,Urine Negative ng/mL (Cutoff= 300); Opiate Screen,Urine Positive ng/mL (Cutoff=300); Phencyclidine Screen,Urine Negative ng/mL (Cutoff=25)
[2019-06-21] MEDS ORDERED: Ibuprofen 400 MG TABLET PO PRN (05:02)
[2019-06-21] MEDS ORDERED: Haloperidol Lactate 5 MG/ML VIAL IM PRN (05:02)
[2019-06-21] MEDS ORDERED: *HR* LORazepam 2 MG/ML VIAL IM PRN (05:02)
[2019-06-21] MEDS ORDERED: Mag Hydrox/Al Hydrox/Simeth 30 ML UDC PO PRN (05:02)
[2019-06-21] MEDS ORDERED: traZODone 50 MG TABLET PO PRN (05:02)
[2019-06-21] MEDS ORDERED: Nicotine 2 MG GUM BC PRN (05:02)
[2019-06-21] MEDS ORDERED: MOM Conc 10 ML UD.LIQ PO PRN (05:02)
[2019-06-21] MEDS ORDERED: hydrOXYzine pamoate 25 MG CAPSULE PO PRN (05:02)
[2019-06-21] MEDS ORDERED: *HR* LORazepam 1 MG TABLET PO PRN (05:02)
[2019-06-21] MEDS ORDERED: haloperidoL 5 MG TABLET PO PRN (05:02)
[2019-06-21] MEDS: Folic Acid 1 MG TABLET PO SCH (10:41)
[2019-06-21] MEDS: Thiamine (B-1) 100 MG TABLET PO SCH (10:41)
[2019-06-22] MEDS: Folic Acid 1 MG TABLET PO SCH (08:22)
[2019-06-22] MEDS: Thiamine (B-1) 100 MG TABLET PO SCH (08:22)
[2019-06-22 09:26] VITALS: BP 134/82
== END 2019-06-22 10:40 | disposition home or self-care (01) | DRG 775 ==
LOC: EMEROOARM 01:50 → 1ANU 04:58 → SUATTDRO 04:58 → 1ANU 05:39
PROVIDERS: ADMIT Psychiatry & Neurology Psychiatry; ATTEND Psychiatry & Neurology Psychiatry